=== PATIENT | female | born 1960 | race Caucasian/White ===

== ENCOUNTER 2024-02-27 00:42 | Emergency (ER) | payer SELFPAY ==
[~2024-02-27] VITALS: Ht 167.6 cm; Wt 63.5 kg
[2024-02-27 00:58] VITALS: BP 200/100; TEMP 98.1; O2SAT 98
== END 2024-02-27 02:25 | disposition left against medical advice (07) ==
LOC: ER 00:46
DX: M54.9 Dorsalgia, unspecified (principal); Z53.21 Procedure and treatment not carried out due to patient leaving prior to being seen by health care provider